=== PATIENT | female | born 1955 | race Caucasian/White ===

== ENCOUNTER 2020-04-17 13:16 | Outpatient (CLI) | payer MEDICARE, SELFPAY ==
--- NOTE | ~2020-04-17 | DEXA_ITS ---
BMD(1) Young-Adult(2) Age-Matched(3) Region (g/cm2) T-score Z-score WHO Classification L1 1.274 1.1 2.2 Normal L2 1.355 1.2 2.4 Normal L3 1.342 1.0 2.1 Normal L4 1.317 0.8 1.9 Normal L1-L4 1.323 1.0 2.2 Normal Trend: L1-L4 Change vs Change vs Measured Age BMD(1) Baseline Previous Date ([age]) (g/cm2) (%) (%) 04/17/2020 [age] 1[age]323 baseline - 1 - Statistically 68% of repeat scans fall within 1SD (+- 0.010 g/cm2 for AP Spine L1-L4) 2 - [place] (Combined NHANES (ages 20-30) / [place] (ages 20-40)) AP Spine Reference Population (v112) 3 - Matched for Age, Weight (females 25-100 kg), Ethnic 11 - World Health Organization - Definition of Osteoporosis and Osteopenia for Women: Normal = T-score at or above -1.0 SD; Osteopenia = T-score between -1.0 and -2.5 SD; Osteoporosis = T-score at or below -2.5 SD; (WHO definitions only apply when a young healthy Women reference database is used to determine T-scores.) Printed: 04/17/2020 1:55:07 PM (13.60)76:3.00:50.00:12.0 0.00:12.48 0.60x1.05 21.8:%Fat=36.9% 0.00:0.00 0.00:0.00 Filename: [email or web address] Scan Mode: Standard;OneScan 37.0 Takes [id number] BMD(1) Young-Adult(2,7) Age-Matched(3) Region (g/cm2) T-score Z-score WHO Classification Neck Left 0.874 -1.2 0.0 Osteopenia Right 0.920 -0.9 0.4 Normal Mean 0.897 -1.0 0.2 Normal Difference 0.045 0.3 0.3 - Total Left 1.030 0.2 1.1 Normal Right 0.986 -0.2 0.7 Normal Mean 1.008 0.0 0.9 Normal Difference 0.044 0.4 0.4 - Hip [place] Length Comparison (mm) (Right = 104.4 mm) (Mean = 104.6 mm) (Left = 103.3 mm) Trend: Total Mean Change vs Change vs Measured Age BMD(1) Baseline Previous Date (years) (g/cm2) (%) (%) 04/17/2020 65.8 1[age]008 baseline - 1 - Statistically 68% of repeat scans fall within 1SD (+- 0.010 g/cm2 for DualFemur Total) 2 - [place] (Combined NHANES (ages 20-30) / [place] (ages 20-40)) Femur Reference Population (v112) 3 - Matched for Age, Weight (females 25-100 kg), Ethnic 7 - DualFemur Total T-score difference is 0.4. Asymmetry is None. 11 - World Health Organization - Definition of Osteoporosis and Osteopenia for Women: Normal = T-score at or above -1.0 SD; Osteopenia = T-score between -1.0 and -2.5 SD; Osteoporosis = T-score at or below -2.5 SD; (WHO definitions only apply when a young healthy Women reference database is used to determine T-scores.) Printed: 04/17/2020 1:55:07 PM (13.60); Filename: [email or web address]; Right Femur; 19.9:%Fat=34.6%; Neck Angle (deg)= 55; Scan Mode: Standard 37.0 uGy; Left Femur; 19.7:%Fat=35.0%; Neck Angle (deg)= 57; Scan Mode: Standard 37.0 uGy [employer] [id number] Dear Cholo Pineda, Your patient Poly Ball completed a BMD test on 04/17/2020 using the One [employer] DXA System (analysis version: 13.60) manufactured by [employer]. The following summarizes the results of our evaluation. PATIENT BIOGRAPHICAL: Name: Poly Ball Date: 1955 Height: 63.0 in. Gender: Female Exam Date: 04/17/2020 Weight: 173.0 lbs.
== END 2020-04-17 13:17 | disposition home or self-care (01) ==
LOC: CHSIMG 13:22
PROVIDERS: PCP Family Medicine; Visit Provider Family Medicine
DX: Z78.0 Asymptomatic menopausal state (principal)
CPT/HCPCS: 77080